=== PATIENT | female | born 1960 | race Caucasian/White ===

== ENCOUNTER → 2016-09-12 | Outpatient (CLI) | payer BC ==
[~2016-09-12] MED LIST: fiber caps PO; probiotics PO
== END | disposition home or self-care (01) ==
LOC: C.LABSPEC 15:49
PROVIDERS: ATTEND Obstetrics & Gynecology
DX: N76.0 Acute vaginitis (principal)

== ENCOUNTER 2020-10-23 16:27 | Inpatient (IN) ==
[2020-10-23] MEDS ORDERED: SODIUM CHLORIDE 0.9% 1000ML 1,000 ML IV STA (18:36)
[2020-10-23] MEDS ORDERED: cefTRIAXone SODIUM 2,000 MG/70 ML BAG IV STA (18:36)
--- NOTE | 2020-10-23 18:41 | Emergency Department Note ---
Impression & Plan Acute Lyme disease, Diplopia, Neutropenia, Transaminitis ED Provider Note NAME: ARISTEO HUBER AGE: 60 SEX: F ARRIVES VIA: Walk-In INFORMANT: Patient, ED PROVIDER(S): Aldo Haney MD CHIEF COMPLAINT: Double vision PLAN: Disposition: Admit MEDICAL DECISION MAKING: The patient is a pleasant 60-year-old woman who presents to the emergency department referred by her PCPs office for double vision which she noticed this morning in the setting of being seen in the emergency department yesterday for evaluation of headache, body aches, fevers over the past several days in the setting of being diagnosed with Lyme disease with positive IgM antibody started on doxycycline. Patient denies any known tick bites but she is frequently outdoors which led to the suspicion for tick exposure. Patient reports she has taken 3 doses of doxycycline and the majority of her symptoms if not all have resolved however when she was looking at the TV today she realized she could not maintain her focus and was seeing double which did somewhat improve with left lateral gaze but worsened with right lateral gaze. He contacted her PCPs office and was referred to the emergency department given concern that doxycycline has been associated with IIH. On arrival the patient is relatively well-appearing in no acute distress, afebrile stable vital signs. She appears clinically dry. She does have no overt disconjugate gaze consistent with her report of diplopia however isolation of the palsy is difficult though suspected to be related to the right lateral rectus. Otherwise she has no neurologic deficits. Patient treated with CTX for Lyme while evaluation in progress. WBC 2.6 with new neutropenia with ANC 0.91. H/H wnl. Chemistry without acidosis. Electrolytes unremarkable. LFTs elevated but downtrending from yesterday. Covid-19 PCR ne gative. MRI brain w/wo contrast demonstrates incidental "slightly enhanced extra-axial lesion measuring 1.0 x 0.5 cm within left cerebellar pontine angle" with ddx including schwannoma, meningioma or other etiology. MRV shows "minimal filling defect within left transverse sinus without evidence of focal occlusion which might represent slow flow." LP performed per procedure note with normal opening pressure of [id number]. CSF clear. Cell count unremarkable. WBC 0. Glucose wnl. Lyme CSF studies pending. Given normal opening pressure IIH 2/2 Doxycycline or from Lyme is excluded. Therefore suspect symptoms related to CN involvement 2/2 Lyme presuming single CN involvement. 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 Thus, reasonable to admit for further treatment and evaluation. The patient and her agree with plan. Case was [place] [facility] [place], who will evaluate the patient for admission. Triage Nursing notes reviewed and agree them. Prior medical records reviewed Vital Signs: reviewed and remarkable for no significant abnormalities Differential diagnosis: Infection, dehydration, metabolic abnormality, hypo/hyperglycemia, electrolyte disturbance, anemia, hypoxia, cardiac sources, intracerebral event, toxicologic, neurologic, as well as other pathologies. ER treatment provided: See below. Diagnostics interpreted by me: ECG: NSR, 61 bpm, no ectopy, incomplete RBBB, no overt ST elevation or depression. Cardiac Monitoring: An order for continuous cardiac monitoring was placed and d emonstrated NSR, 61 bpm, no ectopy. Laboratory studies: See below Imaging studies: See below Consultation(s): Case was discussed with MARLENY Castro hospitalist, who will evaluate the patient for admission. HPI: The patient is a pleasant 60-year-old woman who presents to the emergency d mariely referred by her PCPs office for double vision which she noticed this morning in the setting of being seen in the emergency department yesterday for evaluation of headache, body aches, fevers over the past several days in the setting of being diagnosed with Lyme disease with positive IgM antibody started on doxycycline. Patient denies any known tick bites but she is frequently outdoors which led to the suspicion for tick exposure. Patient reports she has taken 3 doses of doxycycline and the majority of her symptoms if not all have resolved however when she was looking at the TV today she realized she could not maintain her focus and was seeing double which did somewhat improve with left lateral gaze but worsened with right lateral gaze. He contacted her PCPs office and was referred to the emergency department given concern that doxycycline has been associated with IIH. ROS: See above HPI for pertinent positives & negatives. A total of 10 systems re viewed and were otherwise negative. PAST MEDICAL HISTORY:See Below PAST SURGICAL HISTORY:See Below FAMILY HISTORY:See Below SOCIAL HISTORY:See Below HOME MEDICATIONS:See Below ALLERGIES:See Below VITALS:See Below PHYSICAL EXAMINATION: GENERAL: Awake, alert, fatigued-appearing, in no distress HENT: Normocephalic, atraumatic. Oropharynx with dry mucous membranes and otherwise unremarkable. EYES: Normal conjunctiva. Sclera non-icteric. Dysconjugate gaze, with suspicion of right LR palsy. NECK: Supple. No nuchal rigidity. FROM. No JVD. RESPIRATORY: Clear to auscultation. CARDIAC: Regular rate, normal rhythm. Extremities warm and well perfused. Pulses equal. ABDOMEN: Soft, non-distended. No tenderness to palpation. No rebound or guarding. No masses. RECTAL: Deferred. MUSCULOSKELETAL: Chest examination reveals no tenderness. The back is symmetrical on inspection without obvious abnormality. There is no CVA tenderness to palpation. No joint edema. LOWER EXTREMITIES: Calves are equal size bilaterally and non-tender. No edema. No discoloration. NEURO: Ocular exam per above. Otherwise no additional neurologic deficits. Face is symmetric. Speech is fluent. 5/5 strength and SILT x 4 extremities. Cerebellar function intact including [id number]-[id number], alternating palms, [id number]. SKIN: No rash or jaundice noted. ED COURSE: Procedures: Lumbar Puncture Indication: Lyme disease, diplopia. Verbal consent was obtained after the risks and benefits were explained, including but not limited to headache, bleeding/clotting, scarring, infection, pain, and bone/joint/nerve damage. At this time, the risks of the procedure are less than the risks of NOT performing the procedure. A time out was taken and the correct patient and site identified. The patient was placed in the right lateral decubitus position and the back was prepped with chlorhexadine and draped in the standard fashion. The L3/4 intervertebral space was identified, anesthetized locally with 1% lidocaine without epinephrine, and the spinal needle was inserted through the skin with the bevel parallel to the dural fibers. The needle was carefully advanced but was unable to access the lumbar cistern. Next, the L4/5 intervertebral space was identified, anesthetized locally with 1% lidocaine without epinephrine, and the spinal needle was inserted through the skin with the bevel parallel to the dural fibers. The needle was carefully advanced into the lumbar cistern and 4 tubes (12mL) of clear CSF was obtained with opening pressure [id number]. The stylet was replaced and the needle was removed. A bandaid was placed and the patient was placed in the supine position. The patient tolerated the procedure well and there were no complications. 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 Beliefs That Will Affect Care: None marital status: Current Living Situation: Spouse current occupational status: retired Feels Safe at Home: Yes Safety Concerns: Feels Safe At This Time Dental Care, Regularly: Yes Physical Activity Frequency: Daily Seatbelt Use: always Sunscreen Use: Yes Assistive Devices: None Allergies Allergies Allergy/AdvReac Type Severity Reaction Status Date / Time No Known Allergies Allergy Verified 10/23/20 18:52 Home Meds Home Medications Medication Instructions Recorded Confirmed Lactobac 40-Bifido 3-S.thermop 1 cap PO QDB 10/22/20 10/23/20 [Probiotic] naproxen sodium [Aleve] 220 mg PO Q12H PRN 10/22/20 10/23/20 psyllium seed (sugar) [Metamucil 1 tbsp PO QDB 10/22/20 10/23/20 (sugar)] Previous Rx's Medication Instructions Recorded doxycycline hyclate 100 mg PO BID 21 Days #42 tab 10/22/20 Results & Data (ED) Vital Signs Vital Signs - 24 hr 10/23/20 22:00 10/24/20 00:00 10/24/20 00:04 Pulse Rate 57 L Pulse Rate [Apical] 54 L 56 L Pulse Rate from SpO2 Sensor 57 L Pulse Rhythm [Apical] Regular Regular Pulse Strength [Apical] Normal Normal Respiratory Rate 20 18 17 Respiratory Effort / Characteristics Non-Labored Non-Labored Respiratory Depth Normal Normal Respiratory Pattern Regular Regular Blood Pressure 162/105 H Blood Pressure [Left Arm] 148/93 H 162/105 H Blood Pressure Mean 124 Blood Pressure Mean [Left Arm] 111 124 Blood Pressure Position [Left Arm] Sitting Lying Pulse Oximetry 100 97 99 Oxygen Delivery Method Room Air Room Air 10/24/20 00:31 10/24/20 01:00 10/24/20 01:30 Pulse Rate 65 60 58 L Pulse Rate [Apical] Pulse Rate from SpO2 Sensor 60 61 59 L Pulse Rhythm [Apical] Pulse Strength [Apical] Respiratory Rate 15 16 17 Respiratory Effort / Characteristics Respiratory Depth Respiratory Pattern Blood Pressure 172/113 H 167/95 H 156/97 H Blood Pressure [Left Arm] Blood Pressure Mean 132 119 116 Blood Pressure Mean [Left Arm] Blood Pressure Position [Left Arm] Pulse Oximetry 100 99 99 Oxygen Delivery Method Laboratory Data Attestation: I reviewed the patient's lab results. Result diagrams: 10/23/20 19:00 10/23/20 19:00 Lab Results 10/23/20 10/23/20 10/23/20 Range/Units 18:37 18:37 19:00 WBC 2.66 L (4.8-10.8) K/uL RBC 4.24 (4.2-5.4) M/uL Hgb 13.1 (12.0-16.0) g/dL Hct 37.4 (37-47) % MCV 88.2 (80-100) fL MCH 30.9 (25-34) pg MCHC 35.0 (32-36) g/dL RDW Std Deviation 41.1 (36.4-46.3) fL RDW Coeff of Eliana 12.8 (11.5-14.5) % Plt Count 190 (130-400) K/uL MPV 9.7 (7.4-10.4) fL Immature Gran % (Auto) 0.0 % Neut % (Auto) 34.2 % Lymph % (Auto) 48.1 % Alfalfa % (Auto) 14.3 % Eos % (Auto) 2.6 % Baso % (Auto) 0.8 % Neut # (Auto) 0.91 L* (1.4-6.5) K/uL Lymph # (Auto) 1.28 (1.2-3.4) K/uL Alfalfa # (Auto) 0.38 (0.11-0.59) K/uL Eos # (Auto) 0.07 (0-0.5) K/uL Baso # (Auto) 0.02 (0-0.2) K/uL Immature Gran # (Auto) 0.00 (0.00-0.02) K/uL PT (9.0-12.0) Seconds INR (0.9-1.1) Sodium (136-145) mmol/L Potassium (3.5-5.1) mmol/L Chloride (98-107) mmol/L Carbon Dioxide (21-32) mmol/L Anion Gap (3-11) BUN (7-18) mg/dl Creatinine (0.6-1.2) mg/dl Est Cr Clr Drug Dosing ml/min Est GFR ( Amer) ml/min Est GFR (Non-Af Amer) ml/min BUN/Creatinine Ratio (10-20) Glucose (70-99) mg/dl Calcium (8.5-10.1) mg/dl Phosphorus (2.5-4.9) mg/dl Magnesium (1.8-2.4) mg/dl Total Bilirubin (0.2-1) mg/dl AST (15-37) U/L ALT (12-78) U/L Alkaline Phosphatase (45-117) U/L Total Protein (6.4-8.2) gm/dl Albumin (3.4-5.0) gm/dl Globulin (2.5-4.0) gm/dl Albumin/Globulin Ratio (0.9-2) COVID-19 Eval Order Covid19 at [facility] SARS-CoV-2 (PCR) NEGATIVE (Negative) 10/23/20 10/23/20 Range/Units 19:00 19:00 WBC (4.8-10.8) K/uL RBC (4.2-5.4) M/uL Hgb (12.0-16.0) g/dL Hct (37-47) % MCV (80-100) fL MCH (25-34) pg MCHC (32-36) g/dL RDW Std Deviation (36.4-46.3) fL RDW Coeff of Eliana (11.5-14.5) % Plt Count (130-400) K/uL MPV (7.4-10.4) fL Immature Gran % (Auto) % Neut % (Auto) % Lymph % (Auto) % Alfalfa % (Auto) % Eos % (Auto) % Baso % (Auto) % Neut # (Auto) (1.4-6.5) K/uL Lymph # (Auto) (1.2-3.4) K/uL Alfalfa # (Auto) (0.11-0.59) K/uL Eos # (Auto) (0-0.5) K/uL Baso # (Auto) (0-0.2) K/uL Immature Gran # (Auto) (0.00-0.02) K/uL PT 9.9 (9.0-12.0) Seconds INR 1.0 (0.9-1.1) Sodium 139 D (136-145) mmol/L Potassium 3.7 (3.5-5.1) mmol/L Chloride 104 (98-107) mmol/L Carbon Dioxide 26 (21-32) mmol/L Anion Gap 9.0 (3-11) BUN 8 (7-18) mg/dl Creatinine 0.65 (0.6-1.2) mg/dl Est Cr Clr Drug Dosing 85.7 ml/min Est GFR ( Amer) 111.8 ml/min Est GFR (Non-Af Amer) 96.5 ml/min BUN/Creatinine Ratio 11.9 (10-20) Glucose 85 (70-99) mg/dl Calcium 9.0 (8.5-10.1) mg/dl Phosphorus 3.1 (2.5-4.9) mg/dl Magnesium 2.2 (1.8-2.4) mg/dl Total Bilirubin 0.3 (0.2-1) mg/dl AST 73 H (15-37) U/L ALT 102 H (12-78) U/L Alkaline Phosphatase 266 H (45-117) U/L Total Protein 7.9 (6.4-8.2) gm/dl Albumin 3.9 (3.4-5.0) gm/dl Globulin 4.0 (2.5-4.0) gm/dl Albumin/Globulin Ratio 1.0 (0.9-2) COVID-19 Eval Order SARS-CoV-2 (PCR) (Negative) Administered Medications Sodium Chloride (Nss 1000ml) 1,000 mls @ 125 mls/hr IV .Q8H ARUN Stop: 11/23/20 01:44 Last Admin: 10/24/20 14:39 Dose: 125 mls/hr Documented by: [id number] Infusion: 10/24/20 13:07 Dose: 125 mls/hr Documented by: [id number] Admin: 10/24/20 05:07 Dose: 125 mls/hr Documented by: [id number] Infusion: 10/24/20 05:07 Dose: 125 mls/hr Documented by: [id number] Admin: 10/24/20 02:11 Dose: 125 mls/hr Documented by: [id number] Doxycycline Hyclate 100 mg/ (Dextrose) 110 mls @ 50 mls/hr IV Q12H ARUN Stop: 11/03/20 05:59 Last Infusion: 10/24/20 20:43 Dose: 0 mls/hr Documented by: [id number] Admin: 10/24/20 18:02 Dose: 50 mls/hr Documented by: [id number] Infusion: 10/24/20 08:27 Dose: 0 mls/hr Documented by: [id number] Admin: 10/24/20 06:04 Dose: 50 mls/hr Documented by: [id number] Ceftriaxone Sodium 2,000 mg/ (Dextrose) 70 mls @ 100 mls/hr IV Q24H ARUN; P rotocol Stop: 11/03/20 07:59 Last Infusion: 10/24/20 09:35 Dose: 0 mls/hr Documented by: [id number] Admin: 10/24/20 08:45 Dose: 100 mls/hr Documented by: [id number] Discontinued Medications Gadobutrol (Gadobutrol 65ml Vial) 6 ml IV ONCE ONE Stop: 10/23/20 20:48 Last Admin: 10/23/20 20:47 Dose: 6 ml Documented by: [id number] Sodium Chloride (Nss 1000ml) 1,000 mls @ 999 mls/hr IV .Q1H1M STA Stop: 10/23/20 19:36 Last Infusion: 10/23/20 21:40 Dose: 0 mls/hr Documented by: [id number] Admin: 10/23/20 19:29 Dose: 999 mls/hr Documented by: [id number] Ceftriaxone Sodium (Rocephin) 2,000 mg in 70 mls @ 140 mls/hr IV NOW STA Stop: 06/14/21 19:05 Last Infusion: 10/23/20 21:40 Dose: 0 mls/hr Documented by: [id number] Admin: 10/23/20 19:29 Dose: 140 mls/hr Documented by: [id number] Ioversol (Optiray 350 500ml) 120 ml IV ONCE ONE Stop: 10/24/20 14:47 Last Admin: 10/24/20 14:48 Dose: 120 ml Documented by: [id number] Lidocaine HCl (Xylocaine 1%/Sod Bicarb 20 Ml Vial) 20 ml INFIL NOW ONE Stop: 10/24/20 02:19 Last Admin: 10/24/20 03:00 Dose: 20 ml Documented by: [id number] Imaging Data Radiologist's Impression: Brain MRI 10/23/20 18:35 MRI OF THE BRAIN WITHOUT AND WITH IV CONTRAST CLINICAL HISTORY: lyme disease, SILVEIRA, diploplia,dyscongate gaze COMPARISON STUDY: No previous studies for comparison. TECHNIQUE: MRI of the brain was performed from the vertex to the skull base utilizing various T1 and T2 weighted sequences. Following the IV administration of Gadavist contrast, additional enhanced images were obtained. FINDINGS: Sagittal T1, axial diffusion, proton density and T2 weighted axial, coronal FLAIR, and pre and post axial T1-weighted images were acquired. These were supplemented with post gadolinium coronal T1 weighted images. No acute intracranial hemorrhage, no midline shift seen. Rodriguez-white matter differentiation is preserved. Ventricles are midline, of normal size and configuration. There is 1.0 x 0.5 cm enhancing lesion is seen within the right cerebellar pontine angle which shows slightly increased signal on T2 FLAIR and appear to be isointense to brain parenchyma on nonenhanced T1 sequence. Axial diffusion-weighted images reveal no evidence of acute or subacute infarction. There is no evidence of ventricular dilatation. There are no abnormal flow voids. Orbits and paranasal sinuses are unremarkable. IMPRESSION: 1. 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 Differential diagnosis include schwannoma, meningioma or other etiology. No evidence of midline shift or significant mass effect. Please correlate above-mentioned findings with prior history. Follow-up/further evaluation is per clinical protocol. 2. No evidence of restricted diffusion to suggest acute ischemia/infarct. ACT 112: Positive. There are findings on this exam that require communication between the performing entity and the patient following Patient Test Result Information Act ([place] Act 112) guidelines. The above report was generated using voice recognition software. It may contain grammatical, syntax or spelling errors. Electronically signed by: Ashley Cali DO 10/23/2020 9:02 PM Head/Brain Mag Res Venography 10/23/20 18:35 HISTORY: Double vision. No headache or dizziness. History of Lyme disease. TECHNIQUE: Multiplanar, multisequence MR images of the brain were performed and after intravenous administration of gadolinium. COMPARISON: No prior studies for comparison. FINDINGS: Small filling defect is seen within left transverse sinus which appears slightly smaller in caliber than the right however this there is no definite occlusion is seen. The rest of visualized dural sinuses are normal. IMPRESSION: 1. Minimal filling defect within left transverse sinus without evidence of focal occlusion which might represent slow flow. Electronically signed by: Ashley Cali DO 10/23/2020 10:17 PM Discharge Plan Visit Data Chief Complaint: Illness Stated Complaint: REF BY DOCTOR-REACTION TO ABX ED Provider: Aldo Haney Discharge Problem: Acute Lyme disease, Diplopia, Neutropenia, Transaminitis Patient Disposition: Admitted As Inpatient Discharge Instructions Interventions: ED Discharge Assessment Last Done: 10/24/20 04:10
[2020-10-23 19:22] LABS: Hematocrit (blood only) 37.4 % (37-47); Hemoglobin 13.1 g/dL (12.0-16.0); Mean Corpuscular Hemoglobin 30.9 pg (25-34); Mean Corpuscular Volume 88.2 fL (80-100); Mean Platelet Volume 9.7 fL (7.4-10.4); Platelet Count 190 K/uL (130-400); RDW Coefficient of Variation 12.8 % (11.5-14.5); RDW Standard Deviation 41.1 fL (36.4-46.3); Red Blood Count 4.24 M/uL (4.2-5.4); White Blood Count 2.66 K/uL (4.8-10.8)
[2020-10-23 19:24] LABS: Prothrombin Time 9.9 Seconds (9.0-12.0)
[2020-10-23 19:36] LABS: Albumin Level 3.9 gm/dl (3.4-5.0); BUN Creatinine Ratio 11.9 (10-20); Bilirubin,Total 0.3 mg/dl (0.2-1); Creatinine Clr Calc Pharmacy 85.7 ml/min; Est GFR (African American) 111.8 ml/min; Est GFR (Non-African American) 96.5 ml/min; Magnesium 2.2 mg/dl (1.8-2.4); Phosphorus 3.1 mg/dl (2.5-4.9); Potassium 3.7 mmol/L (3.5-5.1); Total Protein 7.9 gm/dl (6.4-8.2)
[2020-10-23 20:02] LABS: Basophils # (auto) 0.02 K/uL (0-0.2); Basophils % (auto) 0.8 %; Eosinophils # (auto) 0.07 K/uL (0-0.5); Eosinophils % (auto) 2.6 %; Lymphocytes # (auto) 1.28 K/uL (1.2-3.4); Lymphocytes % (auto) 48.1 %; Monocytes # (auto) 0.38 K/uL (0.11-0.59); Monocytes % (auto) 14.3 %; Neutrophils # (auto) 0.91 K/uL (1.4-6.5); Neutrophils % (auto) 34.2 %
--- NOTE | 2020-10-23 20:32 | Magnetic Resonance Report ---
HISTORY: Double vision. No headache or dizziness. History of Lyme disease. TECHNIQUE: Multiplanar, multisequence MR images of the brain were performed and after intravenous a dministration of gadolinium. COMPARISON: No prior studies for comparison. FINDINGS: Small filling defect is seen within left transverse sinus which appears slightly smaller in caliber t arellano the right however this there is no definite occlusion is seen. The rest of visualized dural sinuses are normal. IMPRESSION: 1. Minimal filling defect within left transverse sinus without evidence of focal occlusion which migh t represent slow flow. Electronically signed by: Ashley Cali DO 10/23/2020 10:17 PM
[2020-10-23] MEDS ORDERED: GADOBUTROL 65ML VIAL IV ONE (20:47)
--- NOTE | 2020-10-23 21:03 | Magnetic Resonance Report ---
MRI OF THE BRAIN WITHOUT AND WITH IV CONTRAST CLINICAL HISTORY: lyme disease, SILVEIRA, diploplia,dyscongate gaze COMPARISON STUDY: No previous studies for comparison. TECHNIQUE: MRI of the brain was performed from the vertex to the skull base utilizing various T1 and T2 weighted sequences. Following the IV administration of Gadavist contrast, additional enhanced frankie ges were obtained. FINDINGS: Sagittal T1, axial diffusion, proton density and T2 weighted axial, coronal FLAIR, and pre and post a xial T1-weighted images were acquired. These were supplemented with post gadolinium coronal T1 weight ed images. No acute intracranial hemorrhage, no midline shift seen. Rodriguez-white matter differentiation is preserved. Ventricles are midline, of normal size and configuration. There is 1.0 x 0.5 cm enhancing lesion is seen within the right cerebellar pontine angle which shows slightly increased signal on T2 FLAIR and appear to be isointense to brain parenchyma on nonenhanced T1 sequence. Axial diffusion-weighted images reveal no evidence of acute or subacute infarction. There is no evidence of ventricular dilatation. There are no abnormal flow voids. Orbits and paranasal sinuses are unremarkable. IMPRESSION: 1. 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 Differential diagnosis include schwannoma, meningioma or other etiology. No evidence of midline shif t or significant mass effect. Please correlate above-mentioned findings with prior history. Follow-up /further evaluation is per clinical protocol. 2. No evidence of restricted diffusion to suggest acute ischemia/infarct. ACT 112: Positive. There are findings on this exam that require communication between the performing entity and the patient following Patient Test Result Information Act ([place] Act 112) guidelines. The above report was generated using voice recognition software. It may contain grammatical, syntax o r spelling errors. Electronically signed by: Ashley Cali DO 10/23/2020 9:02 PM
[2020-10-24] MEDS: SODIUM CHLORIDE 0.9% 1000ML 1,000 ML IV SCH ×4 (02:11→22:49)
[2020-10-24] MEDS ORDERED: XYLOCAINE 1%/SOD BICARB 20 ML VIAL INFIL ONE (02:18)
--- NOTE | 2020-10-24 02:27 | History & Physical Report ---
Date of Service October 24, 2020 Assessment & Plan (1) Acute Lyme disease: Nikkie Mac is a 60-year-old female with no significant past medical history who presents for concerns of double vision in the setting of recent Lyme disease and recent initiation on doxycycline. 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 TEACHER Lyme in the setting of diplopia and recent Lyme diagnosis -Lumbar puncture collected following initiation of doxycycline on 10/22, and after 1 dose of ceftriaxone in ED on 10/23 -CSF cultures pending -CSF with no white blood cells, normal glucose, normal total protein, and normal opening pressure -Blood cultures from 10/22 with no growth to date -Transitioned to oral doxycycline 100 mg twice daily to IV, with addition of 2 g ceftriaxone daily given INFANT TEACHER concerns -Continue to observe for potential complications of INFANT TEACHER Lyme at this time -Droplet precautions Abnormalities: -AST, ALT, alk phos originally elevated on 10/22 -Improved but still elevated markers on 10/23 -Anaplasma smear negative on 10/22 -Lyme IgM positive on 10/22 Diet: Regular CODE STATUS: Full code DVT prophylaxis: Deferred at this time (2) INFANT TEACHER Lyme disease: (3) Abnormal LFTs: History of Present Illness Primary Care Provider: Rogers Triplett MD Nikkie Mac is a 60-year-old female with no significant past medical history who presents for concerns of double vision in the setting of recent Lyme disease and recent initiation on doxycycline. Of note she was recently seen in the ED on 10/22 for concerns of headache, body aches, fevers, chills over the last several days prior and ultimately at that time had a positive IgM antibody for Lyme disease. She was initiated on doxycycline and received 3 total doses prior to the initiation of the new symptoms this morning. Her previous symptoms have completely resolved at this time, and is she is no longer feeling unwell with the exception of the double vision. She describes it as seeing 2 distinct copies of everything that she is seeing. One that is lightly less sharp and distinct than the other, this started Friday morning (10/23) and has been persistent throughout this entire time without change. Has no other symptoms at this point time. Allergies Allergy/AdvReac Type Severity Reaction Status Date / Time No Known Allergies Allergy Verified 10/23/20 18:52 Home Medications Medication Instructions Recorded Confirmed Type Lactobac 40-Bifido 3-S.thermop 1 cap PO QDB 10/22/20 10/23/20 History [Probiotic] doxycycline hyclate 100 mg PO BID 21 Days #42 tab 10/22/20 10/23/20 Rx naproxen sodium [Aleve] 220 mg PO Q12H PRN 10/22/20 10/23/20 History psyllium seed (sugar) [Metamucil 1 tbsp PO QDB 10/22/20 10/23/20 History (sugar)] Past Med/Surg History Medical History Adenomatous colon polyp Allergic rhinitis Surgical History H/O adenoidectomy S/P skin biopsy Family History Father Hypertension Diabetes Obesity Neoplasm of gastrointestinal tract Mother Hypertension Breast cancer Sister Preeclampsia Mitral valve prolapse Social History Smoking Status: Former smoker Second Hand Exposure: No; Do You Dip or Chew Tobacco: No; Tobacco Cessation Education Requested by Patient: No Hx Alcohol Use: Yes Alcohol type: wine Hx Substance Use: No Preferred Language: Polish Communication Ability: Effective 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 Beliefs That Will Affect Care: None marital status: Current Living Situation: Spouse current occupational status: retired Feels Safe at Home: Yes Safety Concerns: Feels Safe At This Time Dental Care, Regularly: Yes Physical Activity Frequency: Daily Seatbelt Use: always Sunscreen Use: Yes Assistive Devices: None Review of Systems Review of Systems: All systems reviewed & are unremarkable except as noted in HPI & below Physical Exam Constitutional: WD/WN, vitals as above Eyes: PERRL, conjunctivae normal, anicteric sclerae Respiratory: normal respiratory effort, lungs clear to auscultation Auscultation: no crackles, no rales, no rhonchi and no wheezes Cardiovascular: Rate/Rhythm: regular rate and regular rhythm Heart Sounds: no gallop, no murmur and no cardiac rub Vessels: normal peripheral pulses; no JVD Extremities: no edema Gastrointestinal (Abdomen): Inspection/Auscultation: normal bowel sounds; abdomen not distended Percussion/Palpation: abdomen soft; abdomen nontender and no guarding Musculoskeletal: no cyanosis or clubbing, extremities motor strength 5/5 Skin: no rashes, warm and dry Neurologic: PERRL, EOMI, accommodation nl, no face palsy, no dysarthria moves all extremities and awake; no focal motor deficits, no meningeal signs and not confused Cranial Nerves: PERRL, normal accommodation, EOM intact bilaterally, normal facial strength, tongue midline, normal hearing, able to rotate head bilaterally, able to elevate shoulders bilaterally, no nystagmus and symmetric palate elevation Coordination: normal [id number] test and normal [id number] test Psychiatric: Orientation: alert and oriented x 3 Results & Data Results & Data ([facility]) Vital Signs (Past 12 Hours) Vital Signs Temp Pulse Pulse Resp BP BP Pulse Ox 10/24/20 00:00 56 L 18 162/105 H 97 10/23/20 22:00 54 L 20 148/93 H 100 10/23/20 19:24 55 L 20 100 10/23/20 16:47 36.7 C 63 18 151/98 H 99 Laboratory Results 10/24/20 10/24/20 10/24/20 Range/Units 03:51 03:51 03:51 WBC (4.8-10.8) K/uL RBC (4.2-5.4) M/uL Hgb (12.0-16.0) g/dL Hct (37-47) % MCV (80-100) fL MCH (25-34) pg MCHC (32-36) g/dL RDW Std Deviation (36.4-46.3) fL RDW Coeff of Eliana (11.5-14.5) % Plt Count (130-400) K/uL MPV (7.4-10.4) fL Immature Gran % (Auto) % Neut % (Auto) % Lymph % (Auto) % [place] % (Auto) % Eos % (Auto) % Baso % (Auto) % Neut # (Auto) (1.4-6.5) K/uL Lymph # (Auto) (1.2-3.4) K/uL [place] # (Auto) (0.11-0.59) K/uL Eos # (Auto) (0-0.5) K/uL Baso # (Auto) (0-0.2) K/uL Immature Gran # (Auto) (0.00-0.02) K/uL PT (9.0-12.0) Seconds INR (0.9-1.1) Sodium (136-145) mmol/L Potassium (3.5-5.1) mmol/L Chloride (98-107) mmol/L Carbon Dioxide (21-32) mmol/L Anion Gap (3-11) BUN (7-18) mg/dl Creatinine (0.6-1.2) mg/dl Est Cr Clr Drug Dosing ml/min Est GFR ( Amer) ml/min Est GFR (Non-Af Amer) ml/min BUN/Creatinine Ratio (10-20) Glucose (70-99) mg/dl Calcium (8.5-10.1) mg/dl Phosphorus (2.5-4.9) mg/dl Magnesium (1.8-2.4) mg/dl Total Bilirubin (0.2-1) mg/dl AST (15-37) U/L ALT (12-78) U/L Alkaline Phosphatase (45-117) U/L Total Protein (6.4-8.2) gm/dl Albumin (3.4-5.0) gm/dl Globulin (2.5-4.0) gm/dl Albumin/Globulin Ratio (0.9-2) Fld Lyme DNA (PCR) Pending Fluid Comment CSF Appearance CSF Color Xanthrochromic CSF WBC (0-5) /uL CSF RBC (0-) /uL CSF Cell Count Tube # CSF Chemistry Tube # 1 CSF Glucose 45 CSF Total Protein 37.8 (15-45) mg/dl CSF Lyme IgG (Immblot) Cancelled Pending CSF Lyme IgG Bands Det Cancelled Pending CSF Lyme IgM (Immblot) Cancelled Pending CSF Lyme IgM Bands Det Cancelled Pending Lyme Specimen Source Pending COVID-19 Eval Order SARS-CoV-2 (PCR) (Negative) 10/24/20 10/23/20 10/23/20 Range/Units 03:51 19:00 19:00 WBC (4.8-10.8) K/uL RBC (4.2-5.4) M/uL Hgb (12.0-16.0) g/dL Hct (37-47) % MCV (80-100) fL MCH (25-34) pg MCHC (32-36) g/dL RDW Std Deviation (36.4-46.3) fL RDW Coeff of Eliana (11.5-14.5) % Plt Count (130-400) K/uL MPV (7.4-10.4) fL Immature Gran % (Auto) % Neut % (Auto) % Lymph % (Auto) % [place] % (Auto) % Eos % (Auto) % Baso % (Auto) % Neut # (Auto) (1.4-6.5) K/uL Lymph # (Auto) (1.2-3.4) K/uL [place] # (Auto) (0.11-0.59) K/uL Eos # (Auto) (0-0.5) K/uL Baso # (Auto) (0-0.2) K/uL Immature Gran # (Auto) (0.00-0.02) K/uL PT 9.9 (9.0-12.0) Seconds INR 1.0 (0.9-1.1) Sodium 139 D (136-145) mmol/L Potassium 3.7 (3.5-5.1) mmol/L Chloride 104 (98-107) mmol/L Carbon Dioxide 26 (21-32) mmol/L Anion Gap 9.0 (3-11) BUN 8 (7-18) mg/dl Creatinine 0.65 (0.6-1.2) mg/dl Est Cr Clr Drug Dosing 85.7 ml/min Est GFR ( Amer) 111.8 ml/min Est GFR (Non-Af Amer) 96.5 ml/min BUN/Creatinine Ratio 11.9 (10-20) Glucose 85 (70-99) mg/dl Calcium 9.0 (8.5-10.1) mg/dl Phosphorus 3.1 (2.5-4.9) mg/dl Magnesium 2.2 (1.8-2.4) mg/dl Total Bilirubin 0.3 (0.2-1) mg/dl AST 73 H (15-37) U/L ALT 102 H (12-78) U/L Alkaline Phosphatase 266 H (45-117) U/L Total Protein 7.9 (6.4-8.2) gm/dl Albumin 3.9 (3.4-5.0) gm/dl Globulin 4.0 (2.5-4.0) gm/dl Albumin/Globulin Ratio 1.0 (0.9-2) Fld Lyme DNA (PCR) Fluid Comment CSF Appearance Clear CSF Color Colorless Xanthrochromic No xanthochromia CSF WBC 0 (0-5) /uL CSF RBC 21 (0-) /uL CSF Cell Count Tube # 3 CSF Chemistry Tube # Cancelled CSF Glucose Cancelled CSF Total Protein (15-45) mg/dl CSF Lyme IgG (Immblot) CSF Lyme IgG Bands Det CSF Lyme IgM (Immblot) CSF Lyme IgM Bands Det Lyme Specimen Source COVID-19 Eval Order SARS-CoV-2 (PCR) (Negative) 10/23/20 10/23/20 10/23/20 Range/Units 19:00 18:37 18:37 WBC 2.66 L (4.8-10.8) K/uL RBC 4.24 (4.2-5.4) M/uL Hgb 13.1 (12.0-16.0) g/dL Hct 37.4 (37-47) % MCV 88.2 (80-100) fL MCH 30.9 (25-34) pg MCHC 35.0 (32-36) g/dL RDW Std Deviation 41.1 (36.4-46.3) fL RDW Coeff of Eliana 12.8 (11.5-14.5) % Plt Count 190 (130-400) K/uL MPV 9.7 (7.4-10.4) fL Immature Gran % (Auto) 0.0 % Neut % (Auto) 34.2 % Lymph % (Auto) 48.1 % [place] % (Auto) 14.3 % Eos % (Auto) 2.6 % Baso % (Auto) 0.8 % Neut # (Auto) 0.91 L* (1.4-6.5) K/uL Lymph # (Auto) 1.28 (1.2-3.4) K/uL [place] # (Auto) 0.38 (0.11-0.59) K/uL Eos # (Auto) 0.07 (0-0.5) K/uL Baso # (Auto) 0.02 (0-0.2) K/uL Immature Gran # (Auto) 0.00 (0.00-0.02) K/uL PT (9.0-12.0) Seconds INR (0.9-1.1) Sodium (136-145) mmol/L Potassium (3.5-5.1) mmol/L Chloride (98-107) mmol/L Carbon Dioxide (21-32) mmol/L Anion Gap (3-11) BUN (7-18) mg/dl Creatinine (0.6-1.2) mg/dl Est Cr Clr Drug Dosing ml/min Est GFR ( Amer) ml/min Est GFR (Non-Af Amer) ml/min BUN/Creatinine Ratio (10-20) Glucose (70-99) mg/dl Calcium (8.5-10.1) mg/dl Phosphorus (2.5-4.9) mg/dl Magnesium (1.8-2.4) mg/dl Total Bilirubin (0.2-1) mg/dl AST (15-37) U/L ALT (12-78) U/L Alkaline Phosphatase (45-117) U/L Total Protein (6.4-8.2) gm/dl Albumin (3.4-5.0) gm/dl Globulin (2.5-4.0) gm/dl Albumin/Globulin Ratio (0.9-2) Fld Lyme DNA (PCR) Fluid Comment CSF Appearance CSF Color Xanthrochromic CSF WBC (0-5) /uL CSF RBC (0-) /uL CSF Cell Count Tube # CSF Chemistry Tube # CSF Glucose CSF Total Protein (15-45) mg/dl CSF Lyme IgG (Immblot) CSF Lyme IgG Bands Det CSF Lyme IgM (Immblot) CSF Lyme IgM Bands Det Lyme Specimen Source COVID-19 Eval Order Covid19 at [facility] SARS-CoV-2 (PCR) NEGATIVE (Negative) Diagnostic Findings Impressions Brain MRI 10/23/20 18:35 MRI OF THE BRAIN WITHOUT AND WITH IV CONTRAST CLINICAL HISTORY: lyme disease, SILVEIRA, diploplia,dyscongate gaze COMPARISON STUDY: No previous studies for comparison. TECHNIQUE: MRI of the brain was performed from the vertex to the skull base utilizing various T1 and T2 weighted sequences. Following the IV administration of Gadavist contrast, additional enhanced images were obtained. FINDINGS: Sagittal T1, axial diffusion, proton density and T2 weighted axial, coronal FLAIR, and pre and post axial T1-weighted images were acquired. These were supplemented with post gadolinium coronal T1 weighted images. No acute intracranial hemorrhage, no midline shift seen. Rodriguez-white matter differentiation is preserved. Ventricles are midline, of normal size and configuration. There is 1.0 x 0.5 cm enhancing lesion is seen within the right cerebellar pontine angle which shows slightly increased signal on T2 FLAIR and appear to be isointense to brain parenchyma on nonenhanced T1 sequence. Axial diffusion-weighted images reveal no evidence of acute or subacute infarction. There is no evidence of ventricular dilatation. There are no abnormal flow voids. Orbits and paranasal sinuses are unremarkable. IMPRESSION: 1. 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 Differential diagnosis include schwannoma, meningioma or other etiology. No evidence of midline shift or significant mass effect. Please correlate above-mentioned findings with prior history. Follow-up/further evaluation is per clinical protocol. 2. No evidence of restricted diffusion to suggest acute ischemia/infarct. ACT 112: Positive. There are findings on this exam that require communication between the performing entity and the patient following Patient Test Result Information Act ([place] Act 112) guidelines. The above report was generated using voice recognition software. It may contain grammatical, syntax or spelling errors. Electronically signed by: Ashley Cali DO 10/23/2020 9:02 PM Head/Brain Mag Res Venography 10/23/20 18:35 HISTORY: Double vision. No headache or dizziness. History of Lyme disease. TECHNIQUE: Multiplanar, multisequence MR images of the brain were performed and after intravenous administration of gadolinium. COMPARISON: No prior studies for comparison. FINDINGS: Small filling defect is seen within left transverse sinus which appears slightly smaller in caliber than the right however this there is no definite occlusion is seen. The rest of visualized dural sinuses are normal. IMPRESSION: 1. Minimal filling defect within left transverse sinus without evidence of focal occlusion which might represent slow flow. Electronically signed by: Ashley Cali DO 10/23/2020 10:17 PM Supervising Physician Co-Signing Physician Notes Attending addendum: I have physically seen this patient, have supervised the medical residents activities, and agree with the H&P unless as otherwise noted. 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
[2020-10-24 04:20] LABS: Total Protein CSF 37.8 mg/dl (15-45)
[2020-10-24 04:29] LABS: Appearance CSF Clear; CSF Xanthrochromic No xanthochromia; Color CSF Colorless
[2020-10-24 04:30] LABS: CSF Count Tube # 3; White Blood Cell CSF (A) 0 /uL (0-5)
[2020-10-24 04:34] LABS: Red Blood Cell CSF (A) 21 /uL (0-)
[2020-10-24] MEDS ORDERED: ONDANSETRON INJ 2 MG/ML 2 ML VIAL IV PRN (04:38)
[2020-10-24] MEDS ORDERED: NITROGLYCERIN SL 0.4 MG/TAB TAB SL PRN (04:38)
[2020-10-24] MEDS ORDERED: ALUMINUM/MAGNESIUM SUSP 30 ML UDC PO PRN (04:38)
[2020-10-24] MEDS ORDERED: POLYETHYLENE (MIRALAX) 17 GM PACK PO PRN (04:38)
[2020-10-24] MEDS ORDERED: MAGNESIUM HYDROXIDE SUSP 30 ML UDC PO PRN (04:38)
[2020-10-24] MEDS ORDERED: ACETAMINOPHEN 325 MG TAB PO PRN (04:38)
[2020-10-24] MEDS: DOXYCYCLINE HYCLATE 100 MG in DEXTROSE 5% 100 ML IV SCH ×2 (06:04→18:02)
[2020-10-24] MEDS: cefTRIAXone SODIUM 2,000 MG in DEXTROSE 5% 50 ML IV SCH (08:45)
--- NOTE | 2020-10-24 12:02 | Electrocardiogram Report ---
Test Reason : Blood Pressure : / mmHG Vent. Rate : 061 BPM Atrial Rate : 061 BPM P-R Int : 188 ms QRS Dur : 076 ms QT Int : 414 ms P-R-T Axes : 071 013 054 degrees QTc Int : 416 ms Normal sinus rhythm Incomplete right bundle branch block Possible Left atrial enlargement Borderline ECG When compared with ECG of 22-OCT-2020 08:20, No significant change was found Confirmed by Miko Carey ([id number]) on 10/24/2020 12:01:59 PM Referred By: Rogers Yan Confirmed By:Steve Carey
--- NOTE | 2020-10-24 14:05 | Medical Student Progress Note ---
Date of Service October 24, 2020 Assessment & Plan (1) Acute Lyme disease: Nikkie Mac is a 60-year-old female with no significant past medical history who presents for concerns of diplopia in the setting of recent Lyme disease diagnosis on 10/22. (1) Acute Lyme disease: - Lyme IgM positive on 10/22. - Lumbar puncture collected following initiation of doxycycline on 10/22, and after 1 dose of ceftriaxone in ED on 10/23. - CSF with no white blood cells, normal glucose, normal total protein, and normal opening pressure; cultures pending. - Blood cultures from 10/22 with no growth to date. 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 - Droplet precautions. (2) Diplopia: - Possibly neuro Lyme but unlikely due to short course of disease. - Unlikely ischemic etiology in the setting of no diabetes and unlikely compressive given location of lesion on CT (see below). - Consulted neuro. - AI labs pending including CHIVO w/ reflex, AcH-r-aB - CTA H/N: No significant stenosis, occlusion, or aneurysm within the [place]. No significant stenosis, occlusion, or dissection identified within the carotid or vertebral arteries. A 9 x 4 mm extra-axial enhancing lesion within the left cerebellopontine angle cistern. This is better appreciated on the prior MRI and favors a meningioma or schwannoma. (3) Left Tympanic Membrane Perforation: - Patient injured ear with Q-tip approximately one week ago. - Decreased hearing on left side. - Appears to be perforated on exam. - Recommend follow-up with ENT outpatient. (4) Elevated LFTs: - AST, ALT, alk phos originally elevated on 10/22. - Improved but still elevated markers on 10/23. - Continue to monitor. - Anaplasma smear negative on 10/22. (5) Cerebellopontine Lesion on CT: - Patient has CN 6 palsy, unlikely that this lesion relates to the symptom. - Likely benign/incidental - Consulted neuro. 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 The medical student assisted in the documentation of the services. I performed a history and physical and agree with impression and plan as noted in the documentation above, and as summarized below. Pleasant 60-year-old female he was admitted overnight with monocular diplopia, with a positive Lyme screen, mild transaminitis, and leukopenia. The patient was initially seen on October 22 for headache, body aches, fever, chills over the last several days; she returned to the emergency department yesterday with resolution of these initial symptoms but development of diplopia. Incidentally, she reports pain in her left ear subsequent to a Q-tip injury. She notes decreased hearing in the left ear. Upon our exam this morning, she is feeling better, although still with a noted binocular diplopia. Exam 156/94, 54, 18, 36.7, 99% on room air Pleasant. Alert. Appears to have a right lateral rectus palsy; diplopia resolves if either eye is covered, or with far leftward gaze. She does have a apparent rupture of her left tympanic membrane with dried blood in the left external auditory canal She has a small culture on her upper lip, just left of midline Heart regular rate and rhythm Lungs clear Abdomen soft and nontender Extremities without edema No rashes appreciated Data WBC 2.66, hemoglobin 13.1 ESR is 31 CRP 2.55 AST 73, ALT 102, alkaline phosphatase 266; on 613 AST 141, ALT 128, alkaline phosphatase 245. CRP on 10/22 was also noted to be 6.38. CSF appearance was clear, no white blood cells, 21 red blood cells. CFSLyme is pending. Anaplasmosis screen 10/22/2020 was negative. Lyme, Western blot from 10/22/2020 is pending. CSF culture shows no growth to date Brain MRI shows a stable enhancing extra-axial lesion measuring 1.0 x 0.5 cm within the left cerebellar pontine angle. CTA of the head and neck was unremarkable except for demonstration of the above noted extra axial lesion. Impression and Plan Febrile illness, with elevated inflammatory markers and mild transaminitis Diplopia, uncertain etiology Left tympanic membrane perforation secondary to trauma Some of her symptoms are consistent with Lyme other develop neuro Lyme given the short duration and normal CSF Suspect extra-axial lesion noted on MRI is unrelated Consult neurology; discussed by phone today and they will see in a.m. Continue current antibiotics pending Western blot Lyme Outpatient otolaryngology consultation for obstructive memory Subjective Ms. Mac state that she feels well today; however, she is anxious as she does not know the cause of her visual difficulties. She does continue to complain of 'seeing double;' however, she otherwise states that she has no symptoms. She is ambulating, voiding, stooling, and tolerating PO intake well. Review of Systems Review of Systems: All systems reviewed & are unremarkable except as noted in HPI & below Ear, Nose, Mouth, Throat: + ear discharge (blood on pillowcase last week after Q tip ), + ear trauma and + hearing loss Physical Exam Physical Exam: Patient resting comfortably on exam. No acute distress. Constitutional: WD/WN, vitals as above Eyes: PERRL, conjunctivae normal, anicteric sclerae normal accommodation, + position abnormality and + EOM movement deficit (difficulty with lateral m ovement of right eye ); no eyelid abnormality and no fundoscopic abnormality ENMT: Ears: + TM abnormality (obscured by dried blood; possible small perforation) Neck: trachea midline Respiratory: normal respiratory effort, lungs clear to auscultation Cardiovascular: RRR, no murmur, no edema Gastrointestinal (Abdomen): Inspection/Auscultation: abdomen normal to inspection Musculoskeletal: no cyanosis or clubbing, extremities motor strength 5/5 Skin: no rashes, warm and dry Patch of erythema on left lateral ankle approximately 2 cm in diameter Neurologic: normal touch/pain/proprioception, moves all extremities and awake Motor/Sensory: no tremor and no sensory deficit Cranial Nerves: PERRL, normal accommodation, normal facial strength, tongue midline, able to rotate head bilaterally, able to elevate shoulders bilaterally, no nystagmus and symmetric palate elevation; + EOM not intact (impaired lateral movement of right eye ) and + hearing impairment (decreased hearing in left ear ) Coordination: normal [id number] test and normal rapid alternating movements Outside of lateral rectus palsy; normal vision exam. Results & Data ([facility]) Vital Signs (Past 12 Hours) Vital Signs Temp Pulse Pulse Resp BP BP Pulse Ox 10/24/20 11:34 37.0 C 56 L 18 166/94 H 100 10/24/20 07:43 36.8 C 66 20 172/87 H 99 10/24/20 07:00 45 L 10/24/20 06:11 48 L 10/24/20 04:41 36.9 C 56 L 18 156/91 H 97 10/24/20 03:53 18 145/82 H 97 Laboratory Results 10/24/20 10/24/20 10/24/20 12:15 12:15 03:51 WBC RBC Hgb Hct MCV MCH MCHC RDW Std Deviation RDW Coeff of Eliana Plt Count MPV Immature Gran % (Auto) Neut % (Auto) Lymph % (Auto) [place] % (Auto) Eos % (Auto) Baso % (Auto) Neut # (Auto) Lymph # (Auto) [place] # (Auto) Eos # (Auto) Baso # (Auto) Immature Gran # (Auto) ESR 31 H PT INR Sodium Potassium Chloride Carbon Dioxide Anion Gap BUN Creatinine Est Cr Clr Drug Dosing Est GFR ( Amer) Est GFR (Non-Af Amer) BUN/Creatinine Ratio Glucose Calcium Phosphorus Magnesium Total Bilirubin AST ALT Alkaline Phosphatase C-Reactive Protein 2.55 H Total Protein Albumin Globulin Albumin/Globulin Ratio Fluid Comment CSF Appearance CSF Color Xanthrochromic CSF WBC CSF RBC CSF Cell Count Tube # CSF Chemistry Tube # CSF Glucose CSF Total Protein CSF Lyme IgG (Immblot) Cancelled CSF Lyme IgG Bands Det Cancelled CSF Lyme IgM (Immblot) Cancelled CSF Lyme IgM Bands Det Cancelled COVID-19 Eval Order SARS-CoV-2 (PCR) 10/24/20 10/24/20 10/23/20 03:51 03:51 19:00 WBC RBC Hgb Hct MCV MCH MCHC RDW Std Deviation RDW Coeff of Eliana Plt Count MPV Immature Gran % (Auto) Neut % (Auto) Lymph % (Auto) [place] % (Auto) Eos % (Auto) Baso % (Auto) Neut # (Auto) Lymph # (Auto) [place] # (Auto) Eos # (Auto) Baso # (Auto) Immature Gran # (Auto) ESR PT INR Sodium 139 D Potassium 3.7 Chloride 104 Carbon Dioxide 26 Anion Gap 9.0 BUN 8 Creatinine 0.65 Est Cr Clr Drug Dosing 85.7 Est GFR ( Amer) 111.8 Est GFR (Non-Af Amer) 96.5 BUN/Creatinine Ratio 11.9 Glucose 85 Calcium 9.0 Phosphorus 3.1 Magnesium 2.2 Total Bilirubin 0.3 AST 73 H ALT 102 H Alkaline Phosphatase 266 H C-Reactive Protein Total Protein 7.9 Albumin 3.9 Globulin 4.0 Albumin/Globulin Ratio 1.0 Fluid Comment CSF Appearance Clear CSF Color Colorless Xanthrochromic No xanthochromia CSF WBC 0 CSF RBC 21 CSF Cell Count Tube # 3 CSF Chemistry Tube # 1 Cancelled CSF Glucose 45 Cancelled CSF Total Protein 37.8 CSF Lyme IgG (Immblot) CSF Lyme IgG Bands Det CSF Lyme IgM (Immblot) CSF Lyme IgM Bands Det COVID-19 Eval Order SARS-CoV-2 (PCR) 10/23/20 10/23/20 10/23/20 19:00 19:00 18:37 WBC 2.66 L RBC 4.24 Hgb 13.1 Hct 37.4 MCV 88.2 MCH 30.9 MCHC 35.0 RDW Std Deviation 41.1 RDW Coeff of Eliana 12.8 Plt Count 190 MPV 9.7 Immature Gran % (Auto) 0.0 Neut % (Auto) 34.2 Lymph % (Auto) 48.1 [place] % (Auto) 14.3 Eos % (Auto) 2.6 Baso % (Auto) 0.8 Neut # (Auto) 0.91 L* Lymph # (Auto) 1.28 [place] # (Auto) 0.38 Eos # (Auto) 0.07 Baso # (Auto) 0.02 Immature Gran # (Auto) 0.00 ESR PT 9.9 INR 1.0 Sodium Potassium Chloride Carbon Dioxide Anion Gap BUN Creatinine Est Cr Clr Drug Dosing Est GFR ( Amer) Est GFR (Non-Af Amer) BUN/Creatinine Ratio Glucose Calcium Phosphorus Magnesium Total Bilirubin AST ALT Alkaline Phosphatase C-Reactive Protein Total Protein Albumin Globulin Albumin/Globulin Ratio Fluid Comment CSF Appearance CSF Color Xanthrochromic CSF WBC CSF RBC CSF Cell Count Tube # CSF Chemistry Tube # CSF Glucose CSF Total Protein CSF Lyme IgG (Immblot) CSF Lyme IgG Bands Det CSF Lyme IgM (Immblot) CSF Lyme IgM Bands Det COVID-19 Eval Order SARS-CoV-2 (PCR) NEGATIVE 10/23/20 18:37 WBC RBC Hgb Hct MCV MCH MCHC RDW Std Deviation RDW Coeff of Eliana Plt Count MPV Immature Gran % (Auto) Neut % (Auto) Lymph % (Auto) [place] % (Auto) Eos % (Auto) Baso % (Auto) Neut # (Auto) Lymph # (Auto) [place] # (Auto) Eos # (Auto) Baso # (Auto) Immature Gran # (Auto) ESR PT INR Sodium Potassium Chloride Carbon Dioxide Anion Gap BUN Creatinine Est Cr Clr Drug Dosing Est GFR ( Amer) Est GFR (Non-Af Amer) BUN/Creatinine Ratio Glucose Calcium Phosphorus Magnesium Total Bilirubin AST ALT Alkaline Phosphatase C-Reactive Protein Total Protein Albumin Globulin Albumin/Globulin Ratio Fluid Comment CSF Appearance CSF Color Xanthrochromic CSF WBC CSF RBC CSF Cell Count Tube # CSF Chemistry Tube # CSF Glucose CSF Total Protein CSF Lyme IgG (Immblot) CSF Lyme IgG Bands Det CSF Lyme IgM (Immblot) CSF Lyme IgM Bands Det COVID-19 Eval Order Covid19 at [facility] SARS-CoV-2 (PCR) Medications Administered Current Inpatient Medications Acetaminophen (Acetaminophen 325 Mg Tab) 650 mg PO Q4H PRN PRN Reason: Pain or Fever Stop: 11/23/20 04:37 Al Hydrox/Mg Hydrox/Simethicone (Aluminum/Magnesium Susp 30 Ml Udc) 15 ml PO Q4H PRN PRN Reason: Dyspepsia Stop: 11/23/20 04:37 Sodium Chloride (Nss 1000ml) 1,000 mls @ 125 mls/hr IV .Q8H ARUN Stop: 11/23/20 01:44 Last Admin: 10/24/20 14:39 Dose: 125 mls/hr Documented by: Doxycycline Hyclate 100 mg/ (Dextrose) 110 mls @ 50 mls/hr IV Q12H ARUN Stop: 11/03/20 05:59 Last Infusion: 10/24/20 08:27 Dose: Infused Documented by: Ceftriaxone Sodium 2,000 mg/ (Dextrose) 70 mls @ 100 mls/hr IV Q24H ARUN; Protocol Stop: 11/03/20 07:59 Last Infusion: 10/24/20 09:35 Dose: Infused Documented by: Magnesium Hydroxide (Magnesium Hydroxide Susp 30 Ml Udc) 30 ml PO Q12H PRN PRN Reason: Constipation Stop: 11/23/20 04:37 Nitroglycerin (Nitroglycerin Sl 0.4 Mg/Tab Tab) 0.4 mg SL UD PRN PRN Reason: Chest Pain Stop: 11/23/20 04:37 Ondansetron HCl (Ondansetron Inj 2 Mg/Ml 2 Ml Vial) 4 mg IV Q6H PRN PRN Reason: Nausea Stop: 11/23/20 04:37 Polyethylene Glycol (Polyethylene (Miralax) 17 Gm Pack) 17 gm PO DAILY PRN PRN Reason: Constipation Stop: 11/23/20 04:37
[2020-10-24] MEDS ORDERED: OPTIRAY 350 500ml IV ONE (14:46)
--- NOTE | 2020-10-24 15:11 | CT Scan Report ---
HEAD & NECK CTA HISTORY: new diplopia TECHNIQUE: Multiaxial CT images of the head were performed following the the intravenous administrati on of contrast to evaluate the major cerebral vessels. Multiaxial CT images of the neck were also per formed following the intravenous administration of contrast to evaluate the major cervical vessels. M aximum intensity projection images were also obtained. A dose lowering technique was utilized adherin g to the principles of ALARA. COMPARISON: MR brain and MRV 10/23/2020. FINDINGS: Redemonstration of a 9 x 4 mm extra-axial enhancing lesion within the left cerebellopontine angle cis tern. No acute intracranial hemorrhage or acute infarct identified. The major dural venous sinuses ar e patent. The paranasal sinuses sinuses and mastoid air cells are clear. The orbits are unremarkable. The aortic arch and proximal great vessels are widely patent. There is no significant stenosis, occ lusion, or dissection identified within the bilateral common carotid, internal carotid, or vertebral arteries. Moderate degenerative changes within the cervical spine. IMPRESSION: 1. No significant stenosis, occlusion, or aneurysm within the [place]. 2. No significant stenosis, occlusion, or dissection identified within the carotid or vertebral arter ies. 3. A 9 x 4 mm extra-axial enhancing lesion within the left cerebellopontine angle cistern. This is be tter appreciated on the prior MRI and favors a meningioma or schwannoma. ACT 112: Negative or not required by law. Electronically signed by: Jose Chen M.D. 10/24/2020 3:10 PM
[2020-10-25] MEDS: DOXYCYCLINE HYCLATE 100 MG in DEXTROSE 5% 100 ML IV SCH (05:55)
--- NOTE | 2020-10-25 06:23 | Billing Data ---
Date of Service October 25, 2020 Coding Level of Care Code 86462 Initial Inpt Care Lvl 3
[2020-10-25] MEDS: SODIUM CHLORIDE 0.9% 1000ML 1,000 ML IV SCH (08:08)
[2020-10-25] MEDS: cefTRIAXone SODIUM 2,000 MG in DEXTROSE 5% 50 ML IV SCH (08:09)
[2020-10-25 08:35] LABS: Basophils # (auto) 0.02 K/uL (0-0.2); Basophils % (auto) 0.6 %; Eosinophils % (auto) 3.2 %; Hematocrit (blood only) 34.6 % (37-47); Hemoglobin 11.7 g/dL (12.0-16.0); Lymphocytes # (auto) 1.36 K/uL (1.2-3.4); Lymphocytes % (auto) 43.6 %; Mean Corpuscular Hemoglobin 30.3 pg (25-34); Mean Corpuscular Hgb Conc 33.8 g/dL (32-36); Mean Corpuscular Volume 89.6 fL (80-100); Mean Platelet Volume 9.9 fL (7.4-10.4); Monocytes % (auto) 12.8 %; Neutrophils # (auto) 1.24 K/uL (1.4-6.5); Neutrophils % (auto) 39.8 %; Platelet Count 247 K/uL (130-400); RDW Coefficient of Variation 13.2 % (11.5-14.5); RDW Standard Deviation 43.4 fL (36.4-46.3); Red Blood Count 3.86 M/uL (4.2-5.4); White Blood Count 3.12 K/uL (4.8-10.8)
[2020-10-25 08:59] LABS: Albumin Level 3.4 gm/dl (3.4-5.0); BUN Creatinine Ratio 14.6 (10-20); Calcium 8.7 mg/dl (8.5-10.1); Creatinine Clr Calc Pharmacy 105.3 ml/min; Est GFR (African American) 118.9 ml/min; Est GFR (Non-African American) 102.6 ml/min; Potassium 3.3 mmol/L (3.5-5.1)
[2020-10-25 09:02] LABS: Bilirubin,Total 0.3 mg/dl (0.2-1); Globulin 3.5 gm/dl (2.5-4.0); Total Protein 6.9 gm/dl (6.4-8.2)
--- NOTE | 2020-10-25 09:38 | Medical Student Progress Note ---
Date of Service October 25, 2020 Assessment & Plan (1) Acute Lyme disease: Nikkie Mac is a 60-year-old female with no significant past medical history who presents for concerns of diplopia in the setting of recent Lyme disease diagnosis on 10/22. (1) Acute Lyme disease: - Lyme IgM positive on 10/22. - Lumbar puncture collected following initiation of doxycycline on 10/22, and after 1 dose of ceftriaxone in ED on 10/23. - CSF with no white blood cells, normal glucose, normal total protein, and normal opening pressure; cultures pending. - Blood cultures from 10/22 with no growth to date. 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 Will continue doxycycline on discharge. - Droplet precautions. (2) Diplopia: - Improving today. - Possibly neuro Lyme but unlikely due to short course of disease. - Unlikely ischemic etiology in the setting of no diabetes and unlikely compressive given location of lesion on CT (see below). - AI labs pending including CHIVO w/ reflex, AcH-r-aB - CTA H/N: No significant stenosis, occlusion, or aneurysm within the [place]. No significant stenosis, occlusion, or dissection identified within the carotid or vertebral arteries. A 9 x 4 mm extra-axial enhancing lesion within the left cerebellopontine angle cistern. This is better appreciated on the prior MRI and favors a meningioma or schwannoma. - Consulted neuro - no need for neurologic intervention at this time. - Patient will follow up with ophthalmology as an outpatient. (3) Left Tympanic Membrane Perforation: - Patient injured ear with Q-tip approximately one week ago. - Decreased hearing on left side. - Appears to be perforated on exam. - Recommend follow-up with ENT outpatient. (4) Elevated LFTs: - AST, ALT, alk phos originally elevated on 10/22. - Trending down on 10/25, ALT within normal range. - Continue to monitor. - Anaplasma smear negative on 10/22. 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 - Appreciate neurology input, likely benign/incidental meningioma. 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 Mac states that her vision is improved today and she feels that her diplopia has lessened in her peripheral visual brody. She otherwise has no complaints. She states that she is urinating, defecating, ambulating, and tolerating PO intake well. Review of Systems Review of Systems: All systems reviewed & are unremarkable except as noted in HPI & below Ear, Nose, Mouth, Throat: + hearing loss (subjectively improved left-sided) Physical Exam Physical Exam: Patient is resting comfortably on exam. No acute distress. Constitutional: WD/WN, vitals as above Eyes: + anicteric sclerae, + position abnormality and + EOM movement deficit; no conjunctival abnormality ENMT: Ears: + hearing impairment (left ear - decreased hearing) Neck: trachea midline Respiratory: normal respiratory effort, lungs clear to auscultation Cardiovascular: RRR, no murmur, no edema Gastrointestinal (Abdomen): normal bowel sounds, soft, nontender, no hepatosplenomegaly Musculoskeletal: no cyanosis or clubbing, extremities motor strength 5/5 Skin: no rashes, warm and dry Neurologic: Cranial Nerves: + EOM not intact (decreased lateral movement of right eye; improved from yesterday, 10/24) Psychiatric: A+Ox3, euthymic affect Results & Data ([facility]) Vital Signs (Past 12 Hours) Vital Signs Temp Pulse Pulse Resp BP Pulse Ox 10/25/20 07:55 36.4 C L 58 L 17 173/93 H 97 10/25/20 07:18 53 L 10/25/20 04:45 36.8 C 53 L 18 162/93 H 100 10/24/20 22:48 36.5 C 49 L 20 163/87 H 99 Laboratory Results 10/25/20 10/25/20 10/24/20 06:12 06:12 12:15 WBC 3.12 L RBC 3.86 L Hgb 11.7 L Hct 34.6 L MCV 89.6 MCH 30.3 MCHC 33.8 RDW Std Deviation 43.4 RDW Coeff of Eliana 13.2 Plt Count 247 MPV 9.9 Immature Gran % (Auto) 0.0 Neut % (Auto) 39.8 Lymph % (Auto) 43.6 [place] % (Auto) 12.8 Eos % (Auto) 3.2 Baso % (Auto) 0.6 Neut # (Auto) 1.24 L Lymph # (Auto) 1.36 [place] # (Auto) 0.40 Eos # (Auto) 0.10 Baso # (Auto) 0.02 Immature Gran # (Auto) 0.00 ESR Sodium 139 Potassium 3.3 L Chloride 107 Carbon Dioxide 25 Anion Gap 7.0 BUN 8 Creatinine 0.54 L Est Cr Clr Drug Dosing 105.3 Est GFR ( Amer) 118.9 Est GFR (Non-Af Amer) 102.6 BUN/Creatinine Ratio 14.6 Glucose 76 Calcium 8.7 Total Bilirubin 0.3 AST 44 H ALT 69 Alkaline Phosphatase 225 H C-Reactive Protein 2.55 H Total Protein 6.9 Albumin 3.4 Globulin 3.5 Albumin/Globulin Ratio 1.0 10/24/20 12:15 WBC RBC Hgb Hct MCV MCH MCHC RDW Std Deviation RDW Coeff of Eliana Plt Count MPV Immature Gran % (Auto) Neut % (Auto) Lymph % (Auto) [place] % (Auto) Eos % (Auto) Baso % (Auto) Neut # (Auto) Lymph # (Auto) [place] # (Auto) Eos # (Auto) Baso # (Auto) Immature Gran # (Auto) ESR 31 H Sodium Potassium Chloride Carbon Dioxide Anion Gap BUN Creatinine Est Cr Clr Drug Dosing Est GFR ( Amer) Est GFR (Non-Af Amer) BUN/Creatinine Ratio Glucose Calcium Total Bilirubin AST ALT Alkaline Phosphatase C-Reactive Protein Total Protein Albumin Globulin Albumin/Globulin Ratio Medications Administered Current Inpatient Medications Acetaminophen (Acetaminophen 325 Mg Tab) 650 mg PO Q4H PRN PRN Reason: Pain or Fever Stop: 11/23/20 04:37 Al Hydrox/Mg Hydrox/Simethicone (Aluminum/Magnesium Susp 30 Ml Udc) 15 ml PO Q4H PRN PRN Reason: Dyspepsia Stop: 11/23/20 04:37 Sodium Chloride (Nss 1000ml) 1,000 mls @ 125 mls/hr IV .Q8H ARUN Stop: 11/23/20 01:44 Last Admin: 10/25/20 08:08 Dose: 125 mls/hr Documented by: Doxycycline Hyclate 100 mg/ (Dextrose) 110 mls @ 50 mls/hr IV Q12H ARUN Stop: 11/03/20 05:59 Last Infusion: 10/25/20 07:55 Dose: Infused Documented by: Ceftriaxone Sodium 2,000 mg/ (Dextrose) 70 mls @ 100 mls/hr IV Q24H [facility]; Protocol Stop: 11/03/20 07:59 Last Infusion: 10/25/20 09:07 Dose: Infused Documented by: Magnesium Hydroxide (Magnesium Hydroxide Susp 30 Ml Udc) 30 ml PO Q12H PRN PRN Reason: Constipation Stop: 11/23/20 04:37 Nitroglycerin (Nitroglycerin Sl 0.4 Mg/Tab Tab) 0.4 mg SL UD PRN PRN Reason: Chest Pain Stop: 11/23/20 04:37 Ondansetron HCl (Ondansetron Inj 2 Mg/Ml 2 Ml Vial) 4 mg IV Q6H PRN PRN Reason: Nausea Stop: 11/23/20 04:37 Polyethylene Glycol (Polyethylene (Miralax) 17 Gm Pack) 17 gm PO DAILY PRN PRN Reason: Constipation Stop: 11/23/20 04:37
--- NOTE | 2020-10-25 10:09 | Neurology Consultation ---
Date of Consultation October 25, 2020 Assessment & Plan (1) Diplopia: (2) Acute Lyme disease: Right abducens palsy producing horizontal diplopia, most pronounced with rightward gaze. Does not have signs or symptoms suggestive of increased intracranial pressure. No evidence of acute ischemic stroke on MRI. 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 Positive Lyme disease IgM antibody screening, Western blot pending. Patient's abducens palsy occurred after a few doses of doxycycline for suspected Lyme disease, initially presenting with fever, chills, night sweats, and malaise but without known tick bite. Probably not myasthenia gravis. Graves' ophthalmopathy probably unlikely. No evidence of meningoencephalitis. Does not look like SIGNING AGENT Lyme disease. Continue with doxycycline. Follow-up with results of Lyme Western blot and other lab evaluation. Patient will need outpatient ophthalmology assessment as well. No further immediate neurological recommendations. History of Present Illness Reason for Consultation: Diplopia Requesting Physician: Edel Hernández Attending Physician: Richard Felipe, History of Present Illness The patient is a 60-year-old female with a chief complaint of horizontal diplopia, worse with right gaze that began 2 days ago after receiving 3 doses of doxycycline as an outpatient for suspected Lyme disease. She had presented with fever, night sweats, chills, headache, and malaise beginning about 1 week ago. She was initially seen in the emergency department on October 22 for the symptoms. Impression at that time included acute Lyme disease, abnormal LFTs, hyponatremia, leukopenia, and rupture of left tympanic membrane. She was given a prescription for doxycycline at that time. She presented again to the emergency department the following day with diplopia as above. She reports that her systemic symptoms including fever, chills, and malaise have resolved. She also reports that her diplopia with right gaze seems to be improving as well. No ptosis. No vertigo. No speech changes. No weakness or sensory loss. She has had an extensive evaluation including MRI of the brain, MRV of the brain, CTA of the head and neck, and lumbar puncture. Brain MRI does reveal a 1.0 x 0.5 cm extra-axial enhancing lesion within the left cerebellopontine angle consistent with a small meningioma or schwannoma. Finding not likely clinically significant. No evidence of acute or subacute stroke. MRV of the brain reveals a minimal filling defect within the left transverse sinus, likely slow flow, no evidence of occlusion. CTA of the head and neck negative for stenosis, occlusion, aneurysm, or dissection. Allergies Allergy/AdvReac Type Severity Reaction Status Date / Time No Known Allergies Allergy Verified 10/23/20 18:52 Home Medications Medication Instructions Recorded Confirmed Type Lactobac 40-Bifido 3-S.thermop 1 cap PO QDB 10/22/20 10/23/20 History [Probiotic] doxycycline hyclate 100 mg PO BID 21 Days #42 tab 10/22/20 10/23/20 Rx naproxen sodium [Aleve] 220 mg PO Q12H PRN 10/22/20 10/23/20 History psyllium seed (sugar) [Metamucil 1 tbsp PO QDB 10/22/20 10/23/20 History (sugar)] Patient History Medical History Adenomatous colon polyp Allergic rhinitis Surgical History H/O adenoidectomy S/P skin biopsy Family History Father Hypertension Diabetes Obesity Neoplasm of gastrointestinal tract Mother Hypertension Breast cancer Sister Preeclampsia Mitral valve prolapse Social History Smoking Status: Former smoker Second Hand Exposure: No; Do You Dip or Chew Tobacco: No; Tobacco Cessation Education Requested by Patient: No Hx Alcohol Use: Yes Alcohol type: wine Hx Substance Use: No Preferred Language: Mongolian Communication Ability: Effective Supervisor Claims Required: No Beliefs That Will Affect Care: None marital status: Current Living Situation: Spouse current occupational status: retired Feels Safe at Home: Yes Safety Concerns: Feels Safe At This Time Dental Care, Regularly: Yes Physical Activity Frequency: Daily Seatbelt Use: always Sunscreen Use: Yes Assistive Devices: None Review of Systems Constitutional: as per Subjective / HPI, + fever and + chills Eyes: as per Subjective / HPI and + diplopia Ear, Nose, Mouth, Throat: + hearing loss Respiratory: no cough and no dyspnea Cardiovascular: no chest pain and no palpitations Gastrointestinal: no nausea and no vomiting Genitourinary: no dysuria Musculoskeletal: + body aches; no neck pain and no joint pain Integumentary: no rash and no lesions Neurologic: as per Subjective / HPI Psychiatric: no depression and no anxiety Hematologic / Lymphatic: no easy bleeding and no easy bruising Exam (Neuro) Constitutional: well developed and well nourished; no acute distress Eyes: normal visual brody by confrontation, PERRL and normal accommodation; + EOM not intact (Right eye unable to abduct with rightward gaze.), no fundoscopic abnormality, no nystagmus and no papilledema Cardiovascular: Vessels: normal carotid upstroke; no carotid bruit Neurologic: Oriented to:: Person, Place and Time Memory: Short Term Intact and Remote Intact Attention: Span Intact and Concentration Intact Language: Naming Objects and Repeating Phrases Speech Fluency: negative Dysarthria Speech Aphasia: negative Aphasia Fund of Knowledge: Current Events, Past History and Vocabulary Cranial Nerves: Normal II (Visual brody full to confrontation, visual acuity normal), V (Facial sensation intact), VII (There is no facial droop or weakness), VIII (Hearing intact), IX, X (Palate elevates to midline), XI (Shoulder shrug intact) and XII (Tongue protrudes to midline); Abnorm III, IV, (Pupils equal round reactive to light and accommodation. Right eye unable to abduct with right lateral gaze. No nystagmus.) Motor Strength: Normal Lower Extremities and Normal Upper Extremities; negative Pronator Drift Motor Tone: Normal Lower Extremities and Normal Upper Extremities Muscle Bulk/Involuntary Movements: No Involuntary Movements; negative Muscle Atrophy Sensation: Light Touch Intact, Pain/Temperature Intact, Vibration Intact and Proprioception Intact Coordination: Normal; negative Limited Balance, Dysdiadochokinesia, Finger-Nose Abnormal and Heel-Francois Abnormal Deep Tendon Reflexes: Rt Triceps: 2+, Lt Triceps: 2+, Rt Biceps: 2+, Lt Biceps: 2+, Rt Brachioradialis: 2+, Lt Brachioradialis: 2+, Rt Patellar: 2+, Lt Patellar: 2+, Rt Ankle: 2+ and Lt Ankle: 2+ Special Tests: negative Babinski Present Gait: Normal Station and Gait Results & Data ([facility]) Vital Signs (Past 12 Hours) Vital Signs Temp Pulse Pulse Resp BP Pulse Ox 10/25/20 07:55 36.4 C L 58 L 17 173/93 H 97 10/25/20 07:18 53 L 10/25/20 04:45 36.8 C 53 L 18 162/93 H 100 10/24/20 22:48 36.5 C 49 L 20 163/87 H 99 Laboratory Results WBC 3.12, hemoglobin 11.7, hematocrit 34.6, platelet count 247, ESR 31, sodium 139, potassium 3.3, BUN 8, creatinine 0.54, glucose 76, calcium 8.7, AST 44, ALT 69, alkaline phosphatase 225, C-reactive protein 2.55 CSF clear, colorless, no xanthochromia, CSF WBC 0, CSF RBC 21, CSF glucose 45, CSF protein 37.8. Lyme screening positive IgM, Western blot pending. Acetylcholine receptor binding antibody pending. CHIVO screen pending. Diagnostic Findings MRI of the brain, MRV of the brain, CTA of the head and neck, are as described in the history of present illness. I reviewed the images as well as the radiologist interpretation of these tests. Electrocardiogram reveals a normal sinus rhythm, incomplete right bundle branch block, 61 bpm. Coding Level of Care Code 11574 Inpt Consult Level 5 Diagnoses Diplopia H53.2 Acute Lyme disease A69.20
--- NOTE | 2020-10-25 12:55 | Med Student Discharge Summary ---
Date of Service October 25, 2020 Admission HPI Per Admitting Provider Nikkie Mac is a 60-year-old female with no significant past medical history who presents for concerns of double vision in the setting of recent Lyme disease and recent initiation on doxycycline. Of note she was recently seen in the ED on 10/22 for concerns of headache, body aches, fevers, chills over the last several days prior and ultimately at that time had a positive IgM antibody for Lyme disease. She was initiated on doxycycline and received 3 total doses prior to the initiation of the new symptoms this morning. Her previous symptoms have completely resolved at this time, and is she is no longer feeling unwell with the exception of the double vision. She describes it as seeing 2 distinct copies of everything that she is seeing. One that is lightly less sharp and distinct than the other, this started Friday morning (10/23) and has been persistent throughout this entire time without change. Has no other symptoms at this point time. Admission Exam (Per Admitting) Respiratory Auscultation: no crackles, no rales, no rhonchi and no wheezes Cardiovascular Rate/Rhythm: regular rate and regular rhythm Heart Sounds: no gallop, no murmur and no cardiac rub Vessels: normal peripheral pulses; no JVD Extremities: no edema Gastrointestinal (Abdomen) Inspection/Auscultation: normal bowel sounds; abdomen not distended Percussion/Palpation: abdomen soft; abdomen nontender and no guarding Neurologic PERRL, EOMI, accommodation nl, no face palsy, no dysarthria no focal motor deficits, no meningeal signs and not confused Coordination: normal [id number] test Psychiatric Orientation: alert and oriented x 3 Discharge Data Consultations 10/24/20 03:25 ED Decision to Admit Stat 10/24/20 10:30 Consult Neurology Routine Hospital Course (1) Acute Lyme disease: Nikkie Mac is a 60-year-old female with no significant past medical history who presented to the emergency department on 10/24 with concerns of diplopia, determined to be an abducens nerve palsy, in the setting of recent Lyme disease diagnosis on 10/22. Patient received a positive Lyme IgM in the outpatient setting on 10/22 and was started on doxycycline. In the ED, an LP demonstrated no abnormalities and MRI of brain and MR venogram demonstrated an incidental meningioma. CTA Head and Neck were unrevealing. AST, ALT, and Alk Phos were elevated. 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 Neurology was consulted and there was not felt to be any acute neurologic process. Diplopia had begun to improve on the day of discharge and patient was encouraged to follow up in the outpatient setting with ophthalmology. Of note, patient injured her ear with a Q-tip approximately one week prior to admission. Exam did reveal a mild perforation and the patient was encouraged to follow up with ENT as an outpatient. CSF culture, blood culture, and CHIVO w/ reflex, AcH-r-aB were pending at discharge. AST, ALT, and Alk Phos trending down at discharge. Recommend a CMP one week post discharge. 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 Triplett on Friday11/01/20 at 11:20 am. Please arrive to the office at 11:05 am for your appointment. If you are unable to keep this appointment, please call the office to reschedule [phone].) Janak Hendrickson AuD, JANIE-A [Proration Clerk] - 10/26/20 1:15 pm (Please follow up with Nomi Perales CCC-Jeremy on 10/26/20 at 1:15 pm. Please arrive to the office at 1:00 pm for your appointment. If you are unable to keep this appointment, please call the office to reschedule at [phone]. ) Albino Wagoner MD [Physician] - 11/01/20 1:15 pm (Please follow up with Dr. Wagoner on Friday11/01/20 at 1:15 pm. Please arrive to the office at 1:00 pm for your appointment. If you are unable to keep this appointment, please call the office to resche theodore at [phone].) Christophe Nova DO [Physician] - 10/27/20 9:15 am (Please follow up with Dr. Nova on Friday10/27/20 at 9:15 am. Please arrive to the office at 9:00 am for your appointment. If you are unable to keep this appointment, please call the office to reschedule at [phone].) Diet: Regular Ambulatory Orders: Comprehensive Metabolic Panel (Routine) Timeframe: 1 Week Location: Determined by Patient Ordered By: Edel Little Attending Provider Instructions: You were evaluated in the hospital for double vision that newly developed a few days after testing positive for lyme disease. You were started on antibiotics to treat Lyme disease (Doxycycline and Ceftriaxone). You had imaging of the arteries in your head and neck, and an MRI of your brain to look for abnormalities. Your arteries all looked normal. The MRI noted a 1.0 x 1.5 cm mass in your cerebellum that is most likely a benign (not harmful) schwannoma or meningioma (abnormal growth of brain cell tissue). This would not cause your current symptoms. You were also seen by neurology who did not suspect that your symptoms were secondary to neurologic lyme, given how quickly the symptoms came and went, as well as the negative lumbar puncture. The double vision is caused by a muscle on the right side of your right eye not working, which is controlled by your 6th cranial nerve, so we call this a "6th nerve palsy". Most often these are caused by small strokes, blood vessel spasm, or infection. The imaging ruled out a stroke or blood vessel problem, so it was most likely due to inflammation/lyme disease in that nerve. We will continue to treat the lyme disease and also send you home on a steroid burst pack to help lower the inflammation. Because steroids can cause some irritation to your stomach, we recommend taking them separate from your antibiotic, and with food. Steroids can also increase the risk of getting other infections, so we will give you eardrops to prevent an ear infection in your left ear since the eardrum is ruptured. New Medications: Doxycycline 100 mg twice a day for a total of 14 days, to end on November 05. Prednisone Taper, 40 mg x1, 40 mg x1, 30 mg x 1, 20 mg x1, 10 mg x1, to end be finished on October 30. Ofloxacin Ear Drops 10 drops into left ear daily New Appointments: Ophthalmology (Eye) 10/27 9:15 AM and Otolaryngology (Ear Nose Throat) 11/01 1:15 pm. We recommend seeing your primary care physician in the next week as well to get follow up blood work to monitor your elevated liver tests. The specific bands for Lyme disease and autoimmune workup are also still pending and should return by then. Pending Studies at Discharge: No Stand-Alone Forms: My [facility] [employer], Smoking Cessation Medications and DC Order Prescriptions: New prednisone 10 mg tablets,dose pack See Rx Instructions mg .ROUTE .COMPLEX Qty: 14 RF: 0 ofloxacin 0.3 % drops 10 drp otic (ear) DAILY 7 Days Qty: 5 RF: 0 doxycycline monohydrate 100 mg capsule 100 mg PO BID 12 Days Qty: 24 RF: 0 Continued Metamucil (sugar) Powder 1 tbsp PO QDB RF: 0 Probiotic 100 billion cell Capsule 1 cap PO QDB RF: 0 doxycycline hyclate 100 mg tablet 100 mg PO BID 10 Days Qty: 20 RF: 0 Discontinued naproxen sodium [Aleve] 220 mg Tablet 220 mg PO Q12H PRN (Reason: Pain) RF: 0 Discharge Orders: Discharge Order (Routine); Ordered 10/25/20 Ordered By: Edel Hernández Admission Data Admit Date/Time: 10/24/20 03:13 Attending Provider: Richard Felipe Admit Provider: Donal Samuel Primary Care Provider: Rogers Triplett V. Other Providers: Zan Herman ; Sid Tran Other Interventions: Discharge Summary Assessment (RN) Last Done: 10/25/20 12:42 Supervising Attestation I also saw the patient with the medical student and the resident physician. The medical student assisted in the documentation of the services. I performed a history and physical and agree with impression and plan as noted in the documentation above, and as summarized below. I also personally discussed the case with the neurology senior management consultant. The patient is feeling well this morning. She overall feels better; as long as she has a leftward gaze (left of midline) the diplopia has resolved; and a gaze past right of midline the diplopia is present. She denies ear pain this morning (left). Exam Slightly hypertensive otherwise vital signs are stable. She remains afebrile. Pleasant. Alert. Again appears to have a right lateral rectus palsy; diplopia resolves if either eye is covered, or looking left of midline. She has a small cold sore on her upper lip, just left of midline Heart regular rate and rhythm Lungs clear Abdomen soft and nontender Extremities without edema No rashes appreciated Data White blood cell 3.12, hemoglobin 11.7 ESR is 31 CRP 2.55 Alkaline phosphatase still elevated but improved to 225. AST 44, ALT 69. Lyme Western blot is pending. Screening test was positive for IgM, negative for IgG. CSF appearance was clear, no white blood cells, 21 red blood cells. CFSLyme is pending. Anaplasmosis screen 10/22/2020 was negative.. CSF culture shows no growth to date Brain MRI shows a stable enhancing extra-axial lesion measuring 1.0 x 0.5 cm within the left cerebellar pontine angle. CTA of the head and neck was unremarkable except for demonstration of the above noted extra axial lesion. Impression and Plan Febrile illness, with elevated inflammatory markers and mild transaminitis Diplopia, uncertain etiology Left tympanic membrane perforation secondary to trauma Discharged home today Outpatient follow-up with ophthalmology on Friday Outpatient follow-up with otolaryngology late this week or early next week Complete course of doxycycline, total course 14 days Prednisone taper Floxin eardrops pending otolaryngology follow-up for traumatic left tympanic membrane rupture Total discharge time including [id number] evaluation, discussion with consultations, and documentation 40 minutes.
[2020-10-28 18:24] LABS: Lyme DNA PCR CSF or Synovial Not detected (Not Detected); Lyme DNA Source CSF; Lyme IgG Band Pattern CSF DNR; Lyme IgG CSF NO BANDS DETECTED; Lyme IgM Band Pattern CSF DNR; Lyme IgM CSF NO BANDS DETECTED
[2020-10-31 22:16] LABS: Anti Nuclear Antibody Screen NEGATIVE (NEGATIVE); Receptor Binding Ab <0.30 nmol/L
== END 2020-10-25 13:44 | disposition home or self-care (01) | DRG 868 ==
LOC: ED 16:27 → SUATTDRO 10-24 03:13 → 2E 10-24 03:13